=== PATIENT | female | born 2000 | race Caucasian/White ===

== ENCOUNTER → 2023-01-24 | Outpatient (CLI) ==
[~2023-01-24] MED LIST: ACHD5005 PO; BENZ78AE5 TP; Benzocaine/Menthol TP; DIBU30OI TOP; DOCU-239 PO; FERR325T18 PO; IBUP-844 PO; prenatal vit
== END ==
LOC: LABNPT 11:38
PROVIDERS: ATTEND Nurse Practitioner Women's Health
DX: R80.9 Proteinuria, unspecified (principal)
CPT/HCPCS: 82570; 84156

== ENCOUNTER 2023-02-15 19:05 | Outpatient (CLI) | payer BC, MEDICAID ==
[~2023-02-15] VITALS: Ht 160 cm; Wt 77.5 kg
[2023-02-15 19:20] VITALS: BP 111/69
[2023-02-15 20:13] LABS: BILIRUBIN,URINE NEGATIVE (NEGATIVE); CLARITY,URINE CLEAR; COLOR,URINE YELLOW; GLUCOSE, URINE (UA) NEGATIVE (NEGATIVE); KETONES,URINE 1+ (NEGATIVE); LEUKOCYTE ESTERASE ,URINE NEGATIVE (NEGATIVE); NITRITE,URINE NEGATIVE (NEGATIVE); PROTEIN,URINE NEGATIVE (NEGATIVE)
[2023-02-15 20:25] VITALS: BP 111/63
[2023-02-15 20:25] LABS: BACTERIA,URINE NEGATIVE /HPF
[2023-02-15 20:26] LABS: AMORPHOUS SEDIMENT,UR RARE AMOR URATES /LPF
--- NOTE | 2023-02-15 20:27 | OB Triage Report ---
Standard Progress Note Progress Notes/Assess & Plan Date Seen by a Provider: Feb 15, 2023 Time Seen by a Provider: 20:15 Expected Date of Delivery: Feb 15, 2023 Gestational Age in Weeks: 38 Gestational Age in Days: 0 LMP/PRATIK Comment: n/a Progress/Assessment & Plan Patient presents at 22 yo at 38w GA due to headache and blurred vision at home. She denies contractions, bleeding, LOF; good FM. No other complaints Vitals notable for normal BP Exam is reassuring with non-tender abdomen and no edema in lower extremities Labs notable for urine Pr/Cr 0.1 A/P: 22 yo at 38w GA with BOWEN; clinical evaluation is reassuring against pre-eclampsia with normal Pr/Cr and normal BP. Will DC to home with return precautions, and if develops elevated BP would expand workup with further pre- eclampsia labs. Final Diagnosis headache Diagnosis/Problems Diagnosis/Problems (1) 38 weeks gestation of PEDRO CESPEDES MD Feb 15, 2023 20:27
[2023-02-15 20:45] VITALS: BP 111/63
== END 2023-02-15 20:45 | disposition home or self-care (01) ==
LOC: LDRP 19:05 → WSo 19:05
PROVIDERS: ATTEND Student in an Organized Health Care Education/Training Program
DX: H53.8 Other visual disturbances (principal)
CPT/HCPCS: 81000; 82570; 84156; 99213

== ENCOUNTER 2023-02-27 05:30 | Inpatient (IN) | payer BC, MEDICAID ==
[~2023-02-27] VITALS: Ht 160 cm; Wt 79.2 kg
[2023-02-27] VITALS (37 sets, daily range): BP systolic 99–141; BP diastolic 55–88
[2023-02-27] MEDS ORDERED: CATHETER FLUSH 10 ML SYR IV SCH ×2 (06:00→14:00)
[2023-02-27 06:25] LABS: BASOPHILS % (AUTO) 0 % (0-10); EOSINOPHILS # (AUTO) 0.1 10^3/uL (0.0-0.3); EOSINOPHILS % (AUTO) 1 % (0-10); HEMATOCRIT 32 % (35-52); HEMOGLOBIN 10.3 g/dL (11.5-16.0); LYMPHOCYTES # (AUTO) 2.4 10^3/uL (1.0-4.0); LYMPHOCYTES % (AUTO) 26 % (12-44); MEAN CORPUSCULAR HEMOGLOBIN 23 pg (25-34); MEAN CORPUSCULAR HGB CONC 32 g/dL (32-36); MEAN CORPUSCULAR VOLUME 72 fL (80-99); MEAN PLATELET VOLUME 10.9 fL (9.0-12.2); MONOCYTES # (AUTO) 0.4 10^3/uL (0.0-1.0); MONOCYTES % (AUTO) 4 % (0-12); NEUTROPHILS # (AUTO) 6.3 10^3/uL (1.8-7.8); NEUTROPHILS % (AUTO) 68 % (42-75); PLATELET COUNT 291 10^3/uL (130-400); WHITE BLOOD COUNT 9.3 10^3/uL (4.3-11.0)
[2023-02-27] MEDS: D5 LR IV SOLUTION 1,000 ML IV SCH ×2 (06:31→10:12)
--- NOTE | 2023-02-27 07:17 | History & Physical-OB ---
JUAN MANTILLA 02/27/23 0717: OB - Chief Complaint & HPI Date/Time Date of Admission: Date of Admission: February 27, 2023 at 05:30 Date seen by a Provider: February 27, 2023 Time Seen by a Provider: 08:00 Chief Complaint/History OB-Reason for Admission/Chief: Induction of Labor Hx : 4 Hx Para: 2 Expected Date of Delivery: February 28, 2023 Gestational Age in Weeks: 39 Gestational Age in Days: 6 Indication for induction: other (elective) Admission Nurse Assessment Rev: Yes Allergies and Home Medications Allergies Coded Allergies: No Known Drug Allergies (Unverified , 01/24/23) Patient Home Medication List No Active Prescriptions or Reported Meds OB - History Hx of Present Care: Yes Obstetrical History Hx : 4 Hx Para: 2 Patient Past Medical History n/a Social History/Family History 2nd Hand Smoke Exposure: No Immunizations Influenza Vaccine Up-to-Date: No; Not Current Hepatitis B: Yes Rubella: immune RPR/VDRL: Negative GBS Status: Negative HBsAG: Negative ( ) OB - Admission Exam Physical Exam Vitals: Vital Signs 02/27/23 06:25 Temp 36.8 Pulse 95 Resp 16 Pulse Ox 98 O2 Delivery Room Air Cervical Dilatation: 2cm Effacement: 75% Station: -1 Marie Scoring Tool (Modified) Dilation (cm): 1-2cm (1) Effacement (%): 51-79% (2) Descent/Station: -1,0 (2) Cervix Consistency: Soft (2) Cervix Position: Middle/Mid-Position (1) Labs Laboratory Tests Test 02/27/23 06:00 Range/Units White Blood Count 9.3 4.3-11.0 10^3/uL Red Blood Count 4.42 3.80-5.11 10^6/uL Hemoglobin 10.3 L 11.5-16.0 g/dL Hematocrit 32 L 35-52 % Mean Corpuscular Volume 72 L 80-99 fL Mean Corpuscular Hemoglobin 23 L 25-34 pg Mean Corpuscular Hemoglobin Concent 32 32-36 g/dL Red Cell Distribution Width 15.9 H 10.0-14.5 % Platelet Count 291 130-400 10^3/uL Mean Platelet Volume 10.9 9.0-12.2 fL Immature Granulocyte % (Auto) 0 % Neutrophils (%) (Auto) 68 42-75 % Lymphocytes (%) (Auto) 26 12-44 % Monocytes (%) (Auto) 4 0-12 % Eosinophils (%) (Auto) 1 0-10 % Basophils (%) (Auto) 0 0-10 % Neutrophils # (Auto) 6.3 1.8-7.8 10^3/uL Lymphocytes # (Auto) 2.4 1.0-4.0 10^3/uL Monocytes # (Auto) 0.4 0.0-1.0 10^3/uL Eosinophils # (Auto) 0.1 0.0-0.3 10^3/uL Basophils # (Auto) 0.0 0.0-0.1 10^3/uL Immature Granulocyte # (Auto) 0.0 0.0-0.1 10^3/uL OB - Assessment/Plan/Diagnosis Assessment Assessment: induction of labor Admission Dx Induction of labor Admission Status: Inpatient Order (span 2 midnights) Reason for Inpatient Admission: Induction of labor Plan Plan: Induction Induction Method: per Pitocin Protocol DANIAL VAUGHN DO 02/27/23 1324: Allergies and Home Medications Allergies Coded Allergies: No Known Drug Allergies (Unverified , 01/24/23) Patient Home Medication List Home Medication List Reviewed: Yes No Active Prescriptions or Reported Meds OB - Assessment/Plan/Diagnosis Plan Other Plan Verification and Attestation of Medical Student E/M Service A medical student performed and documented this service in my presence. I reviewed and verified all information documented by the medical student and made modifications to such information, when appropriate. I personally performed the physical exam and medical decision making. Danial Vaughn, February 27, 2023,13:24 JUAN MANTILLA February 27, 2023 07:17 DANIAL VAUGHN DO February 27, 2023 13:24
[2023-02-27] MEDS ORDERED: OXYTOCIN PRE-MIX DRIP 500 ML IV ONE (07:29)
[2023-02-27] MEDS ORDERED: OXYTOCIN PRE-MIX DRIP 500 ML IV SCH ×2 (07:30→13:30)
[2023-02-27] MEDS ORDERED: fentaNYL 2 mcg/ml BUPIVA 0.125 100 ML ONE (11:55)
[2023-02-27] MEDS ORDERED: BUPIVACAINE 0.25% 10 ML (SENSORCAINE) VIAL ONE (12:29)
[2023-02-27] MEDS ORDERED: fentaNYL INJ 100 MCG/2 ML AMP ONE (12:29)
[2023-02-27] MEDS ORDERED: fentaNYL 2 mcg/ml BUPIVA 0.125 100 ML IV SCH (12:30)
[2023-02-27] MEDS ORDERED: NALOXONE 0.4 MG/ML 1 ML (NARCAN) VIAL IV PRN ×2 (12:30→13:30)
[2023-02-27] MEDS ORDERED: CATHETER FLUSH 10 ML SYR IV PRN (12:30)
[2023-02-27] MEDS ORDERED: diphenhydrAMINE 50 MG/ML INJ (BENADRYL) IV PRN (12:30)
[2023-02-27] MEDS ORDERED: ONDANSETRON 4 MG/2 ML (SDV) Z0FRAN IV PRN (12:30)
[2023-02-27] MEDS ORDERED: LACTATED RINGERS 1,000 ML IV ONE (12:30)
--- NOTE | 2023-02-27 13:27 | OB Labor & Delivery Record ---
L&D History Date of Service Date of Service: February 27, 2023 History Expected Date of Delivery: February 28, 2023 Gestational Age in Weeks: 39 Hx : 4 Hx Para: 2 Complications Events: Routine care Operative Indications (Cesarea: N/A-Vaginal Delivery Intrapartal Events: None L&D Stage1 Stage One Onset of Labor - Date: February 27, 2023 Monitors and Tracing Monitor Mode: External Heart Rate: 140 Monitor Accelerations: Uniform Station: -1 Residential Variability: Average (6-10) Short Term Variability: Present Presentation: Vertex Vital Signs VS - Last 72 Hours, by Label 02/27/23 02/27/23 02/27/23 02/27/23 06:25 07:15 07:35 08:05 Temp 36.8 37.1 36.4 Pulse 95 78 83 Resp 16 18 18 B/P (MAP) 113/71 (85) 112/57 (75) Pulse Ox 98 O2 Delivery Room Air Room Air Room Air 02/27/23 02/27/23 02/27/23 02/27/23 08:35 09:05 09:35 09:50 Temp 36.5 Pulse 85 68 80 82 Resp 18 18 18 18 B/P (MAP) 131/60 (83) 108/58 (75) 119/74 (89) 113/56 (75) O2 Delivery Room Air Room Air Room Air Room Air 02/27/23 02/27/23 02/27/23 02/27/23 10:05 10:20 10:35 10:50 Pulse 81 77 73 75 Resp 18 18 18 18 B/P (MAP) 103/56 (72) 113/74 (87) 118/74 (89) 109/70 (83) O2 Delivery Room Air Room Air Room Air Room Air 02/27/23 02/27/23 11:05 11:20 Temp 36.0 Pulse 51 74 Resp 18 18 B/P (MAP) 113/69 (84) 120/77 (91) O2 Delivery Room Air Room Air Rupture of Membranes Spontaneous Ruture of Membrane: No Amniotic Membrane Rupture Time: 0715 Amniotic Membrane Fluid Desc.: Clear Vaginal Bleeding Description: Normal Show Progress/Notes Patient admitted for IOL, AROM performed and pitocin augmentation started. She progressed rapidly after epidural was placed to complete and + 2 station. L&D Stage2 Stage Two Stage II Date: February 27, 2023 Monitors and Tracing Monitor Mode: External Heart Rate: 140 Monitor Accelerations: Uniform Monitor Decelerations: Variable Metal Furnace Operator Variability: Average (6-10) Short Term Variability: Present Position: Right Occiput Anterior Presentation: Vertex Cord Descript/Complications Cord Vessel Description: 3 Vessels Delivery Type Delivery Method: Spontaneous Vaginal Anterior Shoulder: Left Episiotomy/Perineal Laceration Laceraction(s)/Extensions: Yes Episiotomy Description: Perineal Extension/lac, 1st degree Degree (describe repair) perineal laceration repaired using 3-0 rapide in usual fashion Condition of Infant Delivery 1 minute Comment: 9 5 minute Comment: 9 Notes Live female infant weight pending. Condition of Infant Condition of Infant: Living Exam: No Observed Abnormalities Resuscitation Resuscitation: N/A - Spontaneous Resp L&D Stage3 Stage Three Stage III Date: February 27, 2023 Pictocin Pitocin Administration mu/min: 2 Pitocin ml/hr: 2 Pitocin Administration Comment: 30 mu wide open after delivery of placenta Placenta Delivery Placenta Delivery: Spontaneous Delivery Summary Summary Estimated blood loss (mL): 200 Attending at delivery: Danial Vaughn DO Condition of Delivery Examined: Cervix Examined, Uterus Explored Post Hemorrhage: No Condition of Mother stable Condition of Infant (s) stable DANIAL VAUGHN DO February 27, 2023 13:27
[2023-02-27] MEDS ORDERED: BENZOCAINE/MENTHOL (DERMOPLAST) 56 ML CAN TP PRN (13:30)
[2023-02-27] MEDS ORDERED: TETANUS,DIPTH,PERTUSS P/F (BOOSTRIX) 0.5 ML VIAL IM ONE (13:30)
[2023-02-27] MEDS ORDERED: MEASLES,MUMPS,RUBELLA 1 EA INJ SQ ONE (13:30)
[2023-02-27] MEDS ORDERED: DIBUCAINE 1% OINTMENT 28 GM TUBE TOP PRN (13:30)
[2023-02-27] MEDS ORDERED: WITCH HAZEL(TUCKS) 40 EA JAR TOP PRN (13:30)
[2023-02-27] MEDS: IBUPROFEN 600 MG (MOTRIN) TAB PO SCH ×2 (13:42→20:18)
[2023-02-27] MEDS: ACETAMINOPHEN 500 MG TAB (TYLENOL) PO SCH ×2 (13:42→20:18)
[2023-02-27] MEDS: DOCUSATE SODIUM 100 MG (COLACE) CAP PO SCH (20:19)
[2023-02-28 00:05] VITALS: BP 113/68
[2023-02-28] MEDS: IBUPROFEN 600 MG (MOTRIN) TAB PO SCH ×3 (01:34→13:41)
[2023-02-28] MEDS: ACETAMINOPHEN 500 MG TAB (TYLENOL) PO SCH ×3 (01:35→13:40)
[2023-02-28 04:15] VITALS: BP 115/61
[2023-02-28 06:21] LABS: BASOPHILS % (AUTO) 0 % (0-10); EOSINOPHILS # (AUTO) 0.1 10^3/uL (0.0-0.3); EOSINOPHILS % (AUTO) 1 % (0-10); HEMATOCRIT 29 % (35-52); HEMOGLOBIN 9.1 g/dL (11.5-16.0); LYMPHOCYTES # (AUTO) 2.5 10^3/uL (1.0-4.0); LYMPHOCYTES % (AUTO) 23 % (12-44); MEAN CORPUSCULAR HEMOGLOBIN 23 pg (25-34); MEAN CORPUSCULAR HGB CONC 31 g/dL (32-36); MEAN CORPUSCULAR VOLUME 73 fL (80-99); MEAN PLATELET VOLUME 11.3 fL (9.0-12.2); MONOCYTES # (AUTO) 0.7 10^3/uL (0.0-1.0); MONOCYTES % (AUTO) 6 % (0-12); NEUTROPHILS # (AUTO) 7.4 10^3/uL (1.8-7.8); NEUTROPHILS % (AUTO) 68 % (42-75); PLATELET COUNT 255 10^3/uL (130-400); WHITE BLOOD COUNT 10.9 10^3/uL (4.3-11.0)
[2023-02-28] MEDS ORDERED: PRENATAL VITAMIN 1 EA TAB PO SCH (07:00)
--- NOTE | 2023-02-28 07:00 | Postpartum Progress Note ---
JUAN MANTILLA 02/28/23 0700: Note Note Day # 1 Subjective: Patient is without complaints. Ambulating, voiding. Tolerating a regular diet without nausea or vomiting. Normal lochia. Pain is well controlled with oral pain medications. Objective: Physical Exam: General - Alert and oriented, no apparent distress Cardio - RRR, no murmurs Pulm - CTAB Abdomen - Soft, appropriately tender to palpation, non-distended, fundus firm at umbilicus Extremities - no edema, negative Gilda's bilaterally Assessment: Post- day # 1, status post vaginal delivery. Recovering well, hemodynamically stable Acute on chronic anemia Plan: Routine care. Encourage breast feeding. Encourage ambulation. Ferrous sulfate supplementation. Plan for discharge 02/28/2023 Vitals - Labs Vital Signs - I&O Vital Signs Date Time Temp Pulse Resp B/P (MAP) Pulse Ox O2 Delivery O2 Flow Rate FiO2 02/28/23 04:15 36.2 65 18 115/61 (79) 97 Room Air 02/28/23 00:05 36.6 83 18 113/68 (83) 96 Room Air 02/27/23 20:10 37.4 88 18 115/63 (80) 97 Room Air 02/27/23 16:20 36.3 91 18 124/63 (83) 97 Room Air 02/27/23 15:20 102 18 115/74 (88) Room Air 02/27/23 15:05 93 18 110/72 (85) Room Air 02/27/23 14:50 74 18 105/55 (72) Room Air 02/27/23 14:35 76 18 115/58 (77) Room Air 02/27/23 14:20 72 18 120/62 (81) Room Air 02/27/23 14:05 76 18 106/63 (77) Room Air 02/27/23 13:50 89 18 124/61 (82) Room Air 02/27/23 13:35 90 18 120/65 (83) Room Air 02/27/23 13:20 36.0 100 18 117/70 (86) Room Air 02/27/23 13:15 130 18 121/88 (99) Room Air 02/27/23 13:10 148 18 141/85 (103) Room Air 02/27/23 13:05 114 18 134/74 (94) Room Air 02/27/23 13:00 75 18 119/65 (83) 100 Room Air 02/27/23 12:55 74 18 121/60 (80) 100 Room Air 02/27/23 12:50 73 18 120/63 (82) 98 Room Air 02/27/23 12:45 77 18 118/71 (87) 98 Room Air 02/27/23 12:40 81 18 124/71 (88) 99 Room Air 02/27/23 12:35 86 18 139/70 (93) 100 Room Air 02/27/23 12:20 78 18 133/57 (82) Room Air 02/27/23 12:05 36.2 49 18 114/83 (93) Room Air 02/27/23 11:50 57 18 114/70 (85) Room Air 02/27/23 11:35 72 18 99/56 (70) Room Air 02/27/23 11:20 74 18 120/77 (91) Room Air 02/27/23 11:05 36.0 51 18 113/69 (84) Room Air 02/27/23 10:50 75 18 109/70 (83) Room Air 02/27/23 10:35 73 18 118/74 (89) Room Air 02/27/23 10:20 77 18 113/74 (87) Room Air 02/27/23 10:05 81 18 103/56 (72) Room Air 02/27/23 09:50 82 18 113/56 (75) Room Air 02/27/23 09:35 36.5 80 18 119/74 (89) Room Air 02/27/23 09:05 68 18 108/58 (75) Room Air 02/27/23 08:35 85 18 131/60 (83) Room Air 02/27/23 08:05 36.4 83 18 112/57 (75) Room Air 02/27/23 07:35 78 18 113/71 (85) Room Air 02/27/23 07:15 37.1 Labs Laboratory Tests 02/28/23 05:49: White Blood Count 10.9, Red Blood Count 3.99, Hemoglobin 9.1L, Hematocrit 29L, Mean Corpuscular Volume 73L, Mean Corpuscular Hemoglobin 23L, Mean Corpuscular Hemoglobin Concent 31L, Red Cell Distribution Width 15.9H, Platelet Count 255, Mean Platelet Volume 11.3, Immature Granulocyte % (Auto) 1, Neutrophils (%) (Auto) 68, Lymphocytes (%) (Auto) 23, Monocytes (%) (Auto) 6, Eosinophils (%) (Auto) 1, Basophils (%) (Auto) 0, Neutrophils # (Auto) 7.4, Lymphocytes # (Auto) 2.5, Monocytes # (Auto) 0.7, Eosinophils # (Auto) 0.1, Basophils # (Auto) 0.0, Immature Granulocyte # (Auto) 0.1 DANIAL VAUGHN DO 02/28/23 0724: Note Note Verification and Attestation of Medical Student E/M Service A medical student performed and documented this service in my presence. I reviewed and verified all information documented by the medical student and made modifications to such information, when appropriate. I personally performed the physical exam and medical decision making. Danial Vaughn February 28, 2023,07:24 JUAN MANTILLA February 28, 2023 07:00 DANIAL VAUGHN DO February 28, 2023 07:24
[2023-02-28] MEDS: DOCUSATE SODIUM 100 MG (COLACE) CAP PO SCH (08:30)
[2023-02-28 08:31] VITALS: BP 111/60
--- NOTE | 2023-02-28 08:34 | Anesthesia-Regional Post-Op ---
Regional Patient Condition Mental Status: Alert, Oriented x3 Circulation: Same as Pre-Op Headache: Absent Sensation: Full Recovery Motor Block: Absent Post Op Complications Complications None Follow Up Care/Instructions Patient Instructions None needed. Anesthesia/Patient Condition Patient is doing well, no complaints, stable vital signs, no apparent adverse anesthesia problems. No complications reported per nursing. D/C home per [facility] [place] Criteria: Yes ARASELI MARQUEZ CRNA February 28, 2023 08:34
[2023-02-28] MEDS ORDERED: FERROUS SULF 325 MG (IRON) TAB PO SCH (09:00)
--- NOTE | 2023-02-28 10:13 | Discharge Inst-Women's Service ---
Discharge Inst-Women's Serv Depart Medication/Instructions New, Converted or Re-Newed RX: Transmitted to Pharmacy Final Diagnosis PPD 1 NVD Problems Reviewed?: Yes Consults/Follow Up Additional Follow Up: Yes Orders/Referrals Dr. Vaughn in 6 weeks Activity Activity: Activity as Tolerated Driving Instructions: No Driving for 1 Week NO SMOKING: NO SMOKING Nothing Inside Vagina: No Douching, No [place], No Tampons Diet Discharge Diet: No Restrictions Symptoms to Report to : Bleeding Excessive, Pain Increased, Fever Over 101 Degrees F, Vaginal Bleeding Increase, Questions/Concerns For Any Problems or Questions: Contact Your Physician DANIAL VAUGHN DO February 28, 2023 10:13
[2023-02-28] MEDS ORDERED: IBUP-844 PO (10:15)
[2023-02-28] MEDS ORDERED: DOCU100C37 PO (10:15)
[2023-02-28] MEDS ORDERED: PNV1TABL67 PO (10:15)
[2023-02-28] MEDS ORDERED: FERR325T24 PO (10:15)
[2023-02-28] MEDS ORDERED: BENZ78AE5 TP (10:15)
[2023-02-28 13:40] VITALS: BP 113/57
[2023-02-28 15:35] VITALS: BP 113/57
== END 2023-02-28 15:35 | disposition home or self-care (01) | DRG 806 ==
LOC: LDRP 05:30
PROVIDERS: ADMIT Obstetrics & Gynecology; ATTEND Obstetrics & Gynecology
PROC: 10E0XZZ Delivery of Products of Conception, External Approach (ICD-10-PCS; principal; 2023-02-27)
PROC: 0HQ9XZZ Repair Perineum Skin, External Approach (ICD-10-PCS; 2023-02-27)
PROC: 0W8NXZZ Division of Female Perineum, External Approach (ICD-10-PCS; 2023-02-27)
PROC: 10907ZC Drainage of Amniotic Fluid, Therapeutic from Products of Conception, Via Natural or Artificial Opening (ICD-10-PCS; 2023-02-27)
DX: O70.0 First degree perineal laceration during delivery (principal); D62 Acute posthemorrhagic anemia; Z37.0 Single live birth; Z3A.39 39 weeks gestation of pregnancy; O99.03 Anemia complicating the puerperium; D64.9 Anemia, unspecified; Z28.310 Unvaccinated for COVID-19
CPT/HCPCS: 36415; 85025; 86780; 86850; 86900; 86901